=== PATIENT | male | born 1955 | race Hispanic/Latino ===

== ENCOUNTER 2017-08-03 20:12 | Inpatient (IN) | payer MEDICAID, MEDICARE ==
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
[2017-08-03 21:14] LABS: BASO # 0.1 K/uL (0.0-0.2); BASO % 0.8 % (0.0-2.0); EOS # 0.1 K/uL (0.0-0.7); EOS % 0.8 % (0.0-4.0); HEMATOCRIT 42.6 % (35.0-51.0); LYMPH # 1.7 K/uL (1.0-4.3); LYMPH % 20.1 % (20.0-40.0); MEAN CELL VOLUME 95.4 fl (80.0-94.0); MEAN CORPUSCULAR HEMOGLOBIN 31.7 pg (27.0-31.0); MEAN CORPUSCULAR HGB CONC 33.2 g/dL (33.0-37.0); MEAN PLATELET VOLUME 8.4 fl (7.2-11.7); MONO # 0.6 K/uL (0.0-0.8); MONO % 6.4 % (0.0-10.0); NEUT # 6.2 K/uL (1.8-7.0); NEUT % 71.9 % (50.0-75.0); RED CELL DISTRIBUTION WIDTH 13.7 % (11.5-14.5); WHITE BLOOD COUNT 8.6 K/uL (4.8-10.8)
[2017-08-03 21:18] LABS: ALB/GLOB RATIO 1.3 (1.0-2.1); ALCOHOL SERUM 265 mg/dl (0-10); ALKALINE PHOSPHATASE 87 U/L (38-126); ALT/SGPT 32 U/L (21-72); AST/SGOT 21 U/L (17-59); BILIRUBIN,TOTAL 0.3 mg/dl (0.2-1.3); BLOOD UREA NITROGEN 7 mg/dl (9-20); CALCIUM 8.7 mg/dL (8.4-10.2); CARBON DIOXIDE 24 mmol/L (22-30); CHLORIDE 108 mmol/L (98-107); GFR AFRICAN-AMERICAN > 60; GLUCOSE,RANDOM 116 mg/dL (75-110); POTASSIUM 3.4 MMOL/L (3.6-5.0); SODIUM 143 mmol/l (132-148); TOTAL PROTEIN 7.3 G/DL (6.3-8.2)
--- NOTE | 2017-08-03 21:44 | CT ---
EXAM: CT Head Without Intravenous Contrast CLINICAL HISTORY: 62 years old, male; Injury or trauma; Fall; Initial encounter; Concussion / head injury; Consciousness not specified; Injury details: Patient fell out of bed; Additional info: Head injury. Fall, ETOH TECHNIQUE: Axial computed tomography images of the head/brain without intravenous contrast. All CT scans at this facility use one or more dose reduction techniques, viz.: automated exposure control; ma/kV adjustment per patient size (including targeted exams where dose is matched to indication; i.e. head); or iterative reconstruction technique. Coronal and sagittal reformatted images were created and reviewed. COMPARISON: No relevant prior studies available. FINDINGS: Brain: Mild atrophy. No intracranial hemorrhage. No mass. No edema. Ventricles: No hydrocephalus. Bones/joints: No acute fracture. Soft tissues: Unremarkable. Sinuses: Scattered minimal to mild mucosal thickening. Mastoid air cells: No mastoid effusion. Orbits: Unremarkable as visualized. IMPRESSION: 1. No intracranial hemorrhage.
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
[2017-08-03] MEDS ORDERED: Potassium Chloride 20 mEq ER Tab PO ONE (22:33)
[2017-08-04 02:24] LABS: RBC URINE 1 /hpf (0-3); URINE BILIRUBIN NEGATIVE (NEGATIVE); URINE BLOOD NEGATIVE (NEGATIVE); URINE COLOR YELLOW (YELLOW); URINE GLUCOSE (UA) NEG (Normal); URINE KETONE NEGATIVE (NEGATIVE); URINE LEUKOCYTE ESTERASE NEG Leu/uL (Negative); URINE PROTEIN NEGATIVE (NEGATIVE); URINE UROBILINOGEN 0.2-1.0 mg/dL (0.2-1.0); WBC URINE < 1 /hpf (0-5)
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
[2017-08-04] MEDS ORDERED: Potassium Chloride 20 mEq ER Tab PO ONE (08:34)
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
--- NOTE | 2017-08-04 11:12 | CARD ---
APPROVED REPORT EKG Measurement Heart [id number] <Conclusion> Normal sinus rhythm Incomplete right bundle branch block Borderline ECG
[2017-08-04] MEDS ORDERED: Magnesium Hydroxide Susp 30 ml UD PO PRN (12:16)
[2017-08-04] MEDS ORDERED: Alum-Mag Hydrox-Simethicone Susp (30 mL) PO PRN (12:16)
[2017-08-04] MEDS ORDERED: Bismuth Subsalicylate 262 mg/15 ml Sus (240 ml) PO PRN (12:16)
--- NOTE | 2017-08-04 13:13 | RAD ---
PROCEDURE: CHEST RADIOGRAPH, 1 VIEW HISTORY: ROUTINE COMPARISON: None available. FINDINGS: LUNGS: Poor inspiration with low lung volumes, crowded bronchovascular markings and mild bibasilar atelectasis right greater than left. Developing lower lobe infiltrate could be excluded with followup radiographs. . PLEURA: No pneumothorax or pleural fluid seen. CARDIOVASCULAR: Heart appears mildly enlarged. Aorta is ectatic and uncoiled. OSSEOUS STRUCTURES: No significant abnormalities. VISUALIZED UPPER ABDOMEN: Normal. OTHER FINDINGS: None. IMPRESSION: Poor inspiration with low lung volumes, crowded bronchovascular markings and mild bibasilar atelectasis right greater than left. Developing lower lobe infiltrate could be excluded with followup radiographs. . Note this report was placed in PA review folder for followup.
[2017-08-04 13:51] VITALS: BMI 27.0
--- NOTE | 2017-08-04 15:21 | PCM.BM ---
<Angelina Silva - Last Filed: 08/04/17 15:18> Treatment Plan Problems - Problems identified on initial assessmt Hopelessness/Helplessness Date Initiated: 08/04/17 Time Initiated: 15:19 Assessment reference: HP, NA Treatment assets and liabiliti Patient Assests: cooperative, ADL independent, good support system, negotiates basic needs, cognitively intact Patient Liabilities: financial problems, other - Milieu Protocol Maintain good personal hygiene: daily Encourage regular showers, daily Remind patient to perform daily oral care, daily Assist patient to perform ADL's Conduct patient checks and document Observation sheet: Q15 minutes Maintain personal safety: every shift Educate patient to report safety concerns to staff, every shift Monitor environment for contraband/sharps Medication safety: Monitor for expected outcome, potential side effects: every shift, Assess barriers to learning: every shift, Assess readiness for medication education: every shift <Elaine Zhao - Last Filed: 08/05/17 11:40> - Diagnosis (1) Alcohol use disorder Status: Acute Interventions: Medication management, Individual and group therapy, Psychoeducation 08/05/17 11:40 (2) Major depressive disorder Status: Acute Interventions: Medication management, Individual and group therapy, Psychoeducation 08/05/17 11:20 (3) Generalized anxiety disorder Status: Acute Interventions: Medication management, Individual and group therapy, Psychoeducation 08/05/17 11:20 <Holli Mackay - Last Filed: 08/05/17 15:10> Family Contact Family contact: Patient agrees to contact Family contacted how many times per week?: 2 - [facility] Information-sharing Agency contact name: Therapist- Lesa and psychiatrist - Dr. Clayton Agency contact number: [phone] - Goals for Treatment Patient goals for treatment: Pt to be encouraged to attend activity and clinical groups 3-5x per week to identify at least 2 contributing factors to depression and suicide attempt. Psycho-education to be provided to patient/ family regarding benefits of medications and treatment adherence. Pt to be encouraged to participate in group milieu to develop effective coping skills to reduce depression and free of suicide ideation. Coordinate discharge resource needs by providing referral for psychiatric treatment follow up in the community. Discharge/Continuing Care - Education Needs Education Needs: Family Medication, Family Diagnosis/Disease Process, Family Coping Skills, Family Community resources, Family Activities of Daily Living, Family Nutrition, Family Health Practices/Safety, Family Personal Hygiene/ Grooming, Family Aftercare Safety Plan, Patient Medication, Patient Diagnosis/ Disease Process, Patient Coping Skills, Patient Community resources, Patient Activities of Daily Living, Patient Nutrition, Patient Health Practices/Safety, Patient Personal Hygiene/Grooming, Patient Aftercare Safety Plan - Discharge Discharge Criteria: Tolerates medication w/o severe side effects, Free of Suicidal thoughts, Free of agitation, Normal sleep pattern, Ability to care for self, Reduction of target symptoms Discharge to:: Home, With Family - Additional Comments 08/05/17 11:07 Pt seen and discussed in team meeting. Reason for admission discussed and reviewed. Pt's social and medical issues reviewed. Pt's medications reviewed and discussed. Tx plan discussed and pt is agreeable. Pt inquiring about discharge. 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 [facility] will continue to follow case. - Treatment Team Participation Discussed with Family/SO: No Was Patient/Family/SO present at Treatment Team Meeting: Yes
[2017-08-05 06:12] LABS: HEMATOCRIT 42.7 % (35.0-51.0); MEAN CELL VOLUME 93.8 fl (80.0-94.0); MEAN CORPUSCULAR HEMOGLOBIN 31.6 pg (27.0-31.0); MEAN CORPUSCULAR HGB CONC 33.7 g/dL (33.0-37.0); RED CELL DISTRIBUTION WIDTH 13.5 % (11.5-14.5); WHITE BLOOD COUNT 6.4 K/uL (4.8-10.8)
[2017-08-05 06:15] LABS: ALB/GLOB RATIO 1.3 (1.0-2.1); ALKALINE PHOSPHATASE 87 U/L (38-126); ALT/SGPT 33 U/L (21-72); AMYLASE 77 U/L (30-110); AST/SGOT 21 U/L (17-59); BILIRUBIN,TOTAL 0.7 mg/dl (0.2-1.3); BLOOD UREA NITROGEN 11 mg/dl (9-20); CALCIUM 8.9 mg/dL (8.4-10.2); CARBON DIOXIDE 26 mmol/L (22-30); CHLORIDE 106 mmol/L (98-107); CHOLESTEROL 161 mg/dL (0-199); GFR AFRICAN-AMERICAN > 60; GLUCOSE,RANDOM 99 mg/dL (75-110); LIPASE 98 U/L (23-300); POTASSIUM 4.2 MMOL/L (3.6-5.0); SODIUM 141 mmol/l (132-148); TOTAL PROTEIN 7.1 G/DL (6.3-8.2)
[2017-08-05 06:41] LABS: THYROID STIMULATING HORMONE 2.92 mIU/ML (0.46-4.68)
[2017-08-05] MEDS: Multivitamin With Minerals Tab PO SCH (08:46)
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
[2017-08-05 12:53] LABS: FOLATE 8.8 ng/mL
--- NOTE | 2017-08-05 18:26 | CP.PCM.CON ---
History of Present Illness - History of Present Illness History of Present Illness: CC: Suicidal ideation This is a 62 year old male with a past medical history of right knee and tibia surgery in late , with chronic knee pain. He came to ED and was found to have drank excessively and taken multiple doses of Xanax as per report. He did have a fall at home but denies any injury. He has depression and was found to have suicidal ideation. The family is concerned that he will harm himself. The patient was subsequently admitted to psychiatric unit for further workup. He denies any other medical problems. Patient denies chest pain, shortness of breath, fevers, chills, nausea, vomiting, diarrhea, headache. Rest of ROS as below. All of the patient's questions were answered at the bedside. Review of Systems - Hematologic/Lymphatic Additional comments: GENERAL/CONSTITUTIONAL: The patient denies fever, fatigue, weakness, weight gain or weight loss. HEAD, EYES, EARS, NOSE AND THROAT: Eyes - The patient denies pain, redness, loss of vision, double or blurred vision, flashing lights or spots, dryness, Ears, nose, mouth and throat. The patient denies ringing in the ears, loss of hearing, nosebleeds, loss of sense of smell, dry sinuses, sinusitis, post nasal drip, CARDIOVASCULAR: The patient denies chest pain, chest pressure, or irregular heartbeats, RESPIRATORY: The patient denies chronic dry cough, coughing up blood, coughing up mucus, wheezing, or shortness of breath. GASTROINTESTINAL: The patient denies decreased appetite, nausea, vomiting, vomiting blood or coffee ground material, heartburn, regurgitation, diarrhea, constipation, gas, blood in the stools, black tarry stools. GENITOURINARY: The patient denies difficult urination, pain or burning with urination, blood in the urine, frequency, or urgency MUSCULOSKELETAL: + Chronic right knee pain. The patient denies arm, buttock, thigh or calf cramps. No muscle pain. No muscle weakness or tenderness. No joint swelling, neck pain, back pain. SKIN: The patient denies easy bruising, skin redness, skin rash, hives, sensitivity to sun exposure, tightness, nodules or bumps, hair loss, color changes in the hands or feet with cold. NEUROLOGIC: The patient denies headache, dizziness, fainting, muscle spasm, loss of consciousness, sensitivity or pain in the hands and feet or memory loss. PSYCHIATRIC: The patient admits to anxiety, depression, and thoughts of suicide. ENDOCRINE: The patient denies intolerance to hot or cold temperature, flushing, fingernail changes, increased thirst, or increased salt intake HEMATOLOGIC/LYMPHATIC: The patient denies anemia, bleeding tendency or clotting tendency. ALLERGIC/IMMUNOLOGIC: The patient denies rhinitis, asthma, skin sensitivity, latex allergies or sensitivity. Past Patient History - Infectious Disease Hx of Infectious Diseases: None - Past Social History Smoking Status: Smoker Currrent Status Unknown - CARDIAC Hx Cardiac Disorders: No - PULMONARY Hx Respiratory Disorders: No Hx Tuberculosis: No - NEUROLOGICAL Hx Neurological Disorder: No HX Cerebrovascular Accident: No Hx Seizures: No - HEENT Hx HEENT Problems: No Other/Comment: wears reading glasses - RENAL Hx Kidney Stones: Yes - ENDOCRINE/METABOLIC Hx Endocrine Disorders: No - HEMATOLOGICAL/ONCOLOGICAL Hx Blood Disorders: No Hx Cancer: No Hx Human Immunodeficiency Virus (HIV): No - INTEGUMENTARY Hx Dermatological Problems: No - MUSCULOSKELETAL/RHEUMATOLOGICAL Hx Falls: Yes (last night) Hx Fractures: Yes (right tibia 1996) Hx Unsteady Gait: No - GASTROINTESTINAL Hx Gastrointestinal Disorders: No - GENITOURINARY/GYNECOLOGICAL Hx Genitourinary Disorders: No Hx Sexually Transmitted Disorders: No - PSYCHIATRIC Hx Anxiety: Yes Hx Depression: Yes Hx Emotional Abuse: No Hx Physical Abuse: No Hx Sexual Abuse: No Hx Substance Use: No - SURGICAL HISTORY Hx Surgeries: Yes (right tibia 1996) Hx Orthopedic Surgery: Yes Other/Comment: Pt states he had arm and leg surgery - ANESTHESIA Hx Anesthesia: Yes Hx Anesthesia Reactions: No Hx Malignant Hyperthermia: No Has any member of the family had a problem w/ anesthesia?: No Meds Allergies/Adverse Reactions: Allergies Allergy/AdvReac Type Severity Reaction Status Date / Time No Known Allergies Allergy Verified 05/17/16 12:43 - Medications Medications: Current Medications Acetaminophen (Tylenol 325mg Tab) 650 mg PO Q4 PRN PRN Reason: Pain, moderate (4-7) Al Hydrox/Mg Hydrox/Simethicone (Maalox Plus 30 Ml) 30 ml PO Q4 PRN PRN Reason: Dyspepsia Bismuth Subsalicylate (Pepto-Bismol) 524 mg PO Q4 PRN PRN Reason: Diarrhea Folic Acid (Folic Acid) 1 mg PO DAILY [facility] Last Admin: 08/05/17 08:46 Dose: 1 mg Lorazepam (Ativan) 0.5 mg PO HS PRN PRN Reason: Insomnia Stop: 08/18/17 12:17 Lorazepam (Ativan) 0.5 mg PO Q6 PRN PRN Reason: Anixety/Agitation Stop: 08/18/17 12:17 Lorazepam (Ativan) 1 mg PO TID [facility] Last Admin: 08/05/17 08:46 Dose: 1 mg Magnesium Hydroxide (Milk Of Magnesia) 30 ml PO HS PRN PRN Reason: Constipation Multivitamins/Minerals (Therapeutic-M Tab) 1 tab PO DAILY [facility] Last Admin: 08/05/17 08:46 Dose: 1 tab Sertraline HCl (Zoloft) 12.5 mg PO DAILY [facility] Last Admin: 08/05/17 08:46 Dose: 12.5 mg Thiamine HCl (Vitamin B1 Tab) 100 mg PO DAILY [facility] Last Admin: 08/05/17 08:47 Dose: 100 mg Trazodone HCl (Desyrel) 50 mg PO HS PRN PRN Reason: for insomia Physical Exam - Additional Findings Additional findings: Physical exam: Constitutional- cooperative, awake, alert. Head- NCAT, PERRL Eye- PERRL, normal accommodation ENT- normal exam, MMM. Neck- normal inspection, supple, no JVD Respiratory- CTAB, no wheezes rales rhonchi Cardiovascular- RRR, +S1, +S2 no MRG GI/Abdominal- normal bowel sounds, soft, no mass, no hsm Skin- warm, dry Extremities Exam- Right knee surgical scare noted. no contusion or evidence of acute injury to right knee. normal capillary refill, normal inspection Neurological Exam- alert, stable gait Psych- normal mood, normal affect Results - Vital Signs Recent Vital Signs: Last Vital Signs Temp 97.3 F L 08/05/17 06:00 Pulse 71 08/05/17 06:00 Resp 19 08/05/17 06:00 BP 117/72 08/05/17 06:00 Pulse Ox 96 08/04/17 10:50 - Labs Result Diagrams: 08/05/17 05:20 08/05/17 05:20 Labs: Laboratory Results - last 24 hr 08/05/17 08/05/17 08/05/17 05:20 05:20 07:11 WBC 6.4 RBC 4.55 Hgb 14.4 Hct 42.7 MCV 93.8 MCH 31.6 H MCHC 33.7 RDW 13.5 Plt Count 185 Sodium 141 Potassium 4.2 Chloride 106 Carbon Dioxide 26 Anion Gap 13 BUN 11 Creatinine 0.9 Est GFR ( Amer) > 60 Est GFR (Non-Af Amer) > 60 Random Glucose 99 Calcium 8.9 Ferritin 70.4 Total Bilirubin 0.7 AST 21 ALT 33 Alkaline Phosphatase 87 Total Protein 7.1 Albumin 4.0 Globulin 3.1 Albumin/Globulin Ratio 1.3 Triglycerides 76 Cholesterol 161 LDL Cholesterol Direct 90 HDL Cholesterol 54 Amylase 77 Lipase 98 Vitamin B12 234 L Free T4 1.01 Thyroxine (T4) 7.70 TSH 3rd Generation 2.92 Assessment & Plan - Assessment and Plan (Free Text) Plan: ASSESSMENT/PLAN This is a 62 year old male with pmh of right knee surgery and chronic pain, admitted for suicidal ideation and depression to the psychiatric unit Right knee pain - Continue Tylenol - Patient weight bearing - No evidence of trauma from fall Heartburn - Maalox PRN - bismuth PRN Suicidal ideation and depression - Agree with Zoloft and Trazodone - Rest of management as per psychiatry
[2017-08-06 06:15] VITALS: BP 115/70; PULSE 65; RESP 19; TEMP 97.8
[2017-08-06] MEDS: Multivitamin With Minerals Tab PO SCH (09:03)
--- NOTE | 2017-08-06 09:34 | PCM.PYCHDC ---
Mental Status Examination - Mental Status Examination Orientation: Person, Place, Situation, Time Memory: Intact Mood: Neutral Affect: Broad Speech: Appropriate Attention: WNL Concentration: WNL Association: WNL Fund of Knowledge: WNL Formal Thought Process: No Impairment Description of patient's judgement and insight: Fair I/J overall; poor I/J re: alcohol use Psychotic Thoughts and Behaviors: NO AH/VH/paranoia/delusions Suicidal Ideation: No Current Homicidal Ideation?: No Discharge Summary - Discharge Note Reason for Hospitalization: HPI: 62 yo male w/ h/o outpatient tx at [facility], presents with worsening depression and relapse of drinking alcohol in the context of his son being murdered a month ago. Patient drank Beer, Gin and took 3 Xanax on Saturday. He denied that it was a suicide attempt. He denies current ideation to harm himself. He is requesting to be discharged from the hospital so he can manage his personal finances and his sons tombstone. He denies that he acutely feels depressed or anxious and is hoping to leave the hospital soon. It was explained to the patient that he can sign a 48 hour letter requesting discharge. Denies psychosis/ sleep/ appetite disturbances. PPHx: Outpatietn tx at [facility]; states that he was prescribed Xanax 0.25 TID, Lexapro and Seroquel, but that he only took the Xanax because he said he could not afford the other medications. H/o suicide attempt at age 16 by taking excess Aspirin. PMHx: Right Tibia surgery Family Hx: Father committed suicide in front of him. SHx: Unemployed, used to work in security, lives w/ , 2 living children, one , +smoke 1/2 ppd. Laboratory Data: Abnormal Lab Results 08/05/17 08/05/17 08/05/17 05:20 05:20 05:20 Hemoglobin A1c 5.5 Folate 8.8 RPR Nonreactive Consultations:: List each consultation separately and include: 1. Reason for request. 2. Findings. 3. Follow-up Consultations: Medicine consult Summary of Hospital Course include:: 1. Description of specific treatment plan utilized for patients during their course of treatmen. 2. Summarize the time- course for resolution of acute symptoms and/or regressed behaviors. 3. Describe issues identified and worked on during hospitalization. 4. Describe medication utilized. 5. Describe medical problems identified and treated. 6. Reassessment of suicide risk Summary of Hospital Course: Patient admitted to the psychiatry unit. Individual and group therapy were provided. Patient denied suicidal ideation/plan/intent. He reports that he was brought to the hospital because he passed out due to alcohol intoxication. Patient was counseled on the dangers of ETOH and the importance of treatment with medications. Patient was counseled to medications are prescribed by his psychiatrist, instead of just taking the Xanax. No current signs/symptoms of ETOH withdrawal. Patient submitted a 48 hour letter requesting discharge. He is not an acute danger to self or others and has capacity to make medical decisions. Patient to sign out AMA. - Diagnosis (1) Alcohol use disorder Current Visit: Yes Status: Acute (2) Major depressive disorder Current Visit: Yes Status: Acute (3) Generalized anxiety disorder Current Visit: Yes Status: Acute - Final Diagnosis (DSM 5) Condition upon Discharge: STABLE DSM 5: Alcohol Use Disorder, MDD, SP Disposition: AGAINST MEDICAL ADVICE Follow-up Treatment Plan: Alcohol Use Disorder, MDD vs substance induced mood disorder, SP -Discharge AMA -Patient counseled on the dangers of ETOH abuse and advised to follow-up with his current mental health providers -Patient informed to go to the ED if he has thoughts of self harm or call 911 - Smoking Cessation Smoking Cessation Medication prescribed: No Reason for not providing: Patient declined - Antipsychotic Medications Pt discharged on 2 or more routine antipsychotic medications: No
[2017-08-08 03:58] VITALS: O2SAT 96
== END 2017-08-06 09:38 | disposition left against medical advice (07) | DRG 881 ==
LOC: H.ER 20:12 → H.ERHOLD 08-04 10:11 → H.STEP 08-04 11:58
PROVIDERS: ADMIT Psychiatry & Neurology Psychiatry; ATTEND Psychiatry & Neurology Psychiatry
PROC: GZ51ZZZ Individual Psychotherapy, Behavioral (ICD-10-PCS; principal; 2017-08-04)
DX: F32.9 Major depressive disorder, single episode, unspecified (principal); S09.90XA Unspecified injury of head, initial encounter; R45.851 Suicidal ideations; F10.129 Alcohol abuse with intoxication, unspecified; F41.1 Generalized anxiety disorder; V89.2XXA Person injured in unspecified motor-vehicle accident, traffic, initial encounter; Y92.009 Unspecified place in unspecified non-institutional (private) residence as the place of occurrence of the external cause; Y92.410 Unspecified street and highway as the place of occurrence of the external cause; Z87.442 Personal history of urinary calculi; F41.9 Anxiety disorder, unspecified; G89.29 Other chronic pain; M25.561 Pain in right knee; R12 Heartburn